=== PATIENT | female | born 1965 | race Caucasian/White ===

== ENCOUNTER 2018-02-24 15:41 | Emergency (ER) | payer MEDICAID ==
[~2018-02-24] VITALS: Ht 162.6 cm; Wt 54.4 kg
[2018-02-24 15:52] VITALS: BP_SYST 148
--- NOTE | 2018-02-24 16:35 | NUR ---
Note ron in ED - 02/24/18 at 1636 by [email or web address] Patient to bed to bee for evaluation. Side rails up. Report given to KARINA DHILLON.
--- NOTE | 2018-02-24 16:35 | NUR ---
Pt from [place] and here for Rx refill for narcolepsy and Barotts esophagus.
--- NOTE | 2018-02-24 16:38 | NUR ---
Dr. Broussard at bedside.
[2018-02-24 16:44] VITALS: BP_SYST 132
--- NOTE | 2018-02-24 16:44 | NUR ---
Patient given written and verbal discharge instructions and verbalizes understanding. ER MD discussed with patient the results and treatment provided. Patient in stable condition. ID arm band removed. Rx of Protonix, Adderall, Flexeril, Gabapentin given. Patient educated on pain management and to follow up with PMD. Pain Scale 1/10. Opportunity for questions provided and answered. Medication side effect fact sheet provided.
== END 2018-02-24 16:44 | disposition home or self-care (01) ==
LOC: SED 15:41
DX: G47.419 Narcolepsy without cataplexy (principal); R03.0 Elevated blood-pressure reading, without diagnosis of hypertension; Z76.0 Encounter for issue of repeat prescription
CPT/HCPCS: 99283

== ENCOUNTER 2018-04-12 16:49 | Emergency (ER) | payer MEDICAID ==
[~2018-04-12] VITALS: Ht 162.6 cm; Wt 60.3 kg
[2018-04-12 16:55] VITALS: BP_SYST 153
[2018-04-12 17:48] VITALS: BP_SYST 148
== END 2018-04-12 17:48 | disposition home or self-care (01) ==
LOC: SED 16:49
DX: I10 Essential (primary) hypertension (principal); F17.210 Nicotine dependence, cigarettes, uncomplicated; M79.7 Fibromyalgia; Z76.0 Encounter for issue of repeat prescription
CPT/HCPCS: 99283

== ENCOUNTER 2018-05-30 11:09 | Emergency (ER) | payer MEDICAID ==
[~2018-05-30] VITALS: Ht 162.6 cm; Wt 56.2 kg
[2018-05-30 11:10] VITALS: BP_SYST 115
== END 2018-05-30 12:09 | disposition home or self-care (01) ==
LOC: SED 11:09
DX: Z76.0 Encounter for issue of repeat prescription (principal); M79.7 Fibromyalgia
CPT/HCPCS: 99283

== ENCOUNTER 2018-06-07 15:34 | Emergency (ER) | payer MEDICAID ==
[~2018-06-07] VITALS: Ht 162.6 cm; Wt 56.2 kg
[2018-06-07 15:56] VITALS: BP_SYST 121
[2018-06-07 16:26] VITALS: BP_SYST 125
== END 2018-06-07 16:26 | disposition home or self-care (01) ==
LOC: SED 15:34
DX: Z76.0 Encounter for issue of repeat prescription (principal); F17.210 Nicotine dependence, cigarettes, uncomplicated; M79.7 Fibromyalgia
CPT/HCPCS: 99283